=== PATIENT | male | born 1980 | race Hispanic/Latino ===

== ENCOUNTER 2020-05-24 02:42 | Emergency (ER) | payer BC ==
[2020-05-24] MEDS ORDERED: KETOROLAC 30 MG/ML INJ ONE (03:31)
[2020-05-24] MEDS ORDERED: MAGNESIUM SULFATE 1 gm IVPB 1 GM/100 ML BAG IV ONE (03:31)
[2020-05-24] MEDS ORDERED: TAMSULOSIN 0.4 MG SR CAP ONE (03:31)
[2020-05-24 03:42] LABS: Absolute Lymphocytes (CBC) 2.3 K/uL (0.7-4.9); Basophils % 0.9 % (0-1.3); Hematocrit 39.8 % (39.6-49.0); Lymphocytes % 39.8 % (15.3-44.8); MPV 7.8 fL (7.6-11.3); RBC Red Blood Cell Count 4.52 M/uL (4.33-5.43)
[2020-05-24 03:48] LABS: Potassium 3.6 mmol/L (3.5-5.1)
[2020-05-24 04:02] LABS: Urine Blood 3+ (NEG); Urine Glucose NEGATIVE (NEG); Urine Protein TRACE (NEG); Urine Specific Gravity >1.030 (1.005-1.030)
[2020-05-24] MEDS ORDERED: CIPROFLOXACIN HCL 500 MG TAB ONE (04:15)
--- NOTE | 2020-05-24 04:41 | ER ---
Nurse's Notes [facility] Name: Vinny Washburn Age: 39 yrs Sex: Male : 1980 Arrival Date: 05/24/2020 Time: 02:46 Bed 17 Private MD: Dax Arauz Diagnosis: Ureterolithiasis without obstruction Presentation: 05/24 02:55 Chief complaint: Patient states: he was woken up approx an hour ago with sharp left bb flank pain which was so bad it made his knees buckle the pain has improved now. Coronavirus screen: At this time, the client does not indicate any symptoms associated with coronavirus-19. Ebola Screen: No symptoms or risks identified at this time. Initial Sepsis Screen: Does the patient meet any 2 criteria? No. Patient's initial sepsis screen is negative. Does the patient have a suspected source of infection? No. Patient's initial sepsis screen is negative. Risk Assessment: Do you want to hurt yourself or someone else? Patient reports no desire to harm self or others. Onset of symptoms was May 24, 2020. 02:55 Method Of Arrival: Ambulatory bb 02:55 Acuity: DONYA 3 bb Triage Assessment: 02:58 General: Appears. mt2 02:58 General: Appears uncomfortable, Behavior is calm, cooperative. Pain: Complains of pain bb in left flank. 03:03 EENT: No deficits noted. Neuro: No deficits noted. Cardiovascular: No deficits noted. mt2 Respiratory: No deficits noted. GI: Reports. GI: Reports nausea. : Reports pain flank(s). Derm: No deficits noted. Musculoskeletal: No deficits noted. Historical: - Allergies: 02:58 No Known Allergies; bb - Home Meds: 02:58 Unable to obtain [Active]; bb - PMHx: 02:58 Hypertension; High Cholesterol; Allergies; bb - PSHx: 02:58 Vasectomy; bb - Immunization history:: Adult Immunizations up to date. - Social history:: Smoking status: Patient denies any tobacco usage or history of. Patient uses alcohol, occasionally. Patient/guardian denies using street drugs. - Family history:: not pertinent. - Hospitalizations: : No recent hospitalization is reported. Screenin:56 Abuse screen: Denies threats or abuse. Denies injuries from another. Nutritional rr5 screening: No deficits noted. Tuberculosis screening: No symptoms or risk factors identified. Fall Risk IV access (20 points). Total Poon Fall Scale indicates No Risk (0-24 pts). Assessment: 04:09 Reassessment: Patient and/or family updated on plan of care and expected duration. Pain mt2 level reassessed. Patient is alert, oriented x 3, equal unlabored respirations, skin warm/dry/pink. Patient denies pain at this time. GI: Abdomen is flat. 05:01 Reassessment: Patient and/or family updated on plan of care and expected duration. Pain mt2 level reassessed. Patient is alert, oriented x 3, equal unlabored respirations, skin warm/dry/pink. Patient denies pain at this time. Patient states symptoms have improved. General: Appears comfortable, Behavior is cooperative. Vital Signs: 02:55 BP 126 / 83; Pulse 79; Resp 16 S; Temp 98(O); Pulse Ox 96% on R/A; Weight 111.58 kg bb (R); Height 6 ft. 1 in. (185.42 cm) (R); Pain 3/10; 04:10 BP 120 / 68; Pulse 71; Resp 16; Pulse Ox 99% on R/A; Pain 0/10; mt2 05:01 BP 121 / 86; Pulse 79; Resp 16; Pulse Ox 99% on R/A; Pain 0/10; mt2 02:55 Body Mass Index 32.46 (111.58 kg, 185.42 cm) ED Course: 02:46 Patient arrived in ED. es 02:46 Dax Arauz DO is Private Physician. es 02:48 Kenyon Barron MD is Attending Physician. rn 02:48 Teresa Jennings, SOHAN is Primary Nurse. mt2 02:56 Inserted saline lock: 18 gauge in right antecubital area, using aseptic technique. rr5 ,using aseptic technique. inserted by teresa PARRY Blood collected. 02:57 Triage completed. bb 02:57 Patient has correct armband on for positive identification. Bed in low position. Call rr5 light in reach. Pulse ox on. NIBP on. 02:58 Arm band placed on Patient placed in an exam room, on a stretcher, on pulse oximetry. bb 03:20 CT Stone Protocol In Process Unspecified. EDMS 04:40 Philipp Russo MD is Referral Physician. rn 05:01 No provider procedures requiring assistance completed. IV discontinued, intact, mt2 bleeding controlled, No redness/swelling at site. Pressure dressing applied. Administered Medications: 03:31 Drug: Flomax 0.4 mg Route: PO; mt2 04:10 Follow up: Response: No adverse reaction; Pain is decreased mt2 03:31 Drug: Magnesium Sulfate 1 grams Route: IVPB; Infused Over: 1 hrs; Site: right mt2 antecubital; 05:00 Follow up: Response: No adverse reaction; IV Status: Completed infusion mt2 03:32 Drug: TORadol 30 mg Route: IVP; Site: right antecubital; mt2 04:10 Follow up: Response: No adverse reaction; Pain is decreased mt2 04:05 Drug: Cipro 500 mg Route: PO; mt2 04:43 Follow up: Response: No adverse reaction mt2 Outcome: 04:40 Discharge ordered by MD. rn 05:01 Discharged to home ambulatory. mt2 05:01 Condition: good 05:01 Discharge instructions given to patient, Instructed on discharge instructions, follow up and referral plans. medication usage, Demonstrated understanding of instructions, follow-up care, medications, Prescriptions given X 4. 05:02 Patient left the ED. mt2 Signatures: Dispatcher [employer] Carolyn Art Brenda RN RN Kenyon Murray MD MD rn Roque, Raymond, RN RN rr5 Teresa Jennings RN RN mt2
--- NOTE | 2020-05-24 04:41 | EDPHYS ---
Physician Documentation [facility] Name: Vinny Washburn Age: 39 yrs Sex: Male : 1980 Arrival Date: 05/24/2020 Time: 02:46 Bed 17 Private MD: Asia Arauzh ED Physician Kenyon Barron HPI: 05/24 03:19 This 39 yrs old Male presents to ER via Ambulatory with complaints of Flank rn Pain, Nausea. 03:19 The patient complains of pain in the left mid back. Onset: The symptoms/episode rn began/occurred just prior to arrival. Modifying factors: The symptoms are alleviated by nothing. the symptoms are aggravated by nothing. Severity of pain: At its worst the pain was moderate in the emergency department the pain has improved. The patient has not experienced similar symptoms in the past. Reports sudden onset of left flank pain, woke him up, no radiation of pain, did notice difficulty urinating and slightly darker urine. Brother with hx of kidney stones. . Historical: - Allergies: 02:58 No Known Allergies; bb - Home Meds: 02:58 Unable to obtain [Active]; bb - PMHx: 02:58 Hypertension; High Cholesterol; Allergies; bb - PSHx: 02:58 Vasectomy; bb - Immunization history:: Adult Immunizations up to date. - Social history:: Smoking status: Patient denies any tobacco usage or history of. Patient uses alcohol, occasionally. Patient/guardian denies using street drugs. - Family history:: not pertinent. - Hospitalizations: : No recent hospitalization is reported. ROS: 03:19 Constitutional: Negative for fever, chills, and weight loss, Eyes: Negative for injury, rn pain, redness, and discharge, Cardiovascular: Negative for chest pain, palpitations, and edema, Respiratory: Negative for shortness of breath, cough, wheezing, and pleuritic chest pain, Abdomen/GI: + left flank pain Back: Negative for injury and pain, : Negative for injury, bleeding, discharge, and swelling, MS/Extremity: Negative for injury and deformity, Skin: Negative for injury, rash, and discoloration, Neuro: Negative for headache, weakness, numbness, tingling, and seizure. Exam: 03:19 Constitutional: This is a well developed, well nourished patient who is awake, alert, rn and in no acute distress. Head/Face: Normocephalic, atraumatic. Cardiovascular: Regular rate and rhythm. No pulse deficits. Respiratory: No increased work of breathing, no retractions or nasal flaring. Abdomen/GI: soft, non-tender, no masses Back: No spinal tenderness. No costovertebral tenderness. Full range of motion. Skin: Warm, dry MS/ Extremity: Pulses equal, no cyanosis. Neurovascular intact. Full, normal range of motion. Equal circumference. Neuro: Awake and alert, GCS 15 Vital Signs: 02:55 BP 126 / 83; Pulse 79; Resp 16 S; Temp 98(O); Pulse Ox 96% on R/A; Weight 111.58 kg bb (R); Height 6 ft. 1 in. (185.42 cm) (R); Pain 3/10; 04:10 BP 120 / 68; Pulse 71; Resp 16; Pulse Ox 99% on R/A; Pain 0/10; mt2 05:01 BP 121 / 86; Pulse 79; Resp 16; Pulse Ox 99% on R/A; Pain 0/10; mt2 02:55 Body Mass Index 32.46 (111.58 kg, 185.42 cm) bb MDM: 02:48 Patient medically screened. rn 04:09 Differential diagnosis: nephrolithiasis. Data reviewed: vital signs, nurses notes, label sewer test result(s), radiologic studies, CT scan. Counseling: I had a detailed discussion with the patient and/or guardian regarding: the historical points, exam findings, and any diagnostic results supporting the discharge/admit diagnosis, lab results, radiology results, the need for outpatient follow up, to return to the emergency department if symptoms worsen or persist or if there are any questions or concerns that arise at home. Response to treatment: the patient's symptoms have markedly improved after treatment, and as a result, I will discharge patient. Special discussion: I discussed with the patient/guardian in detail that at this point there is no indication for admission to the hospital. It is understood, however, that if the symptoms persist or worsen the patient needs to return immediately for re-evaluation. ED course: Pt states pain markedly improved, pain even decreased from original 2/10 when presented here. Likely passed into bladder. Will observe here a while longer given pharmacies are closed and will be unable to obtain pain/nausea medication when discharged. . 05/24 02:58 Order name: CBC with Diff; Complete Time: 04:04 co2 05/24 02:58 Order name: BMP; Complete Time: 04:04 co2 05/24 03:00 Order name: CT Stone Protocol rn 05/24 03:05 Order name: Urine Dipstick--Ancillary (enter results); Complete Time: 04:04 [facility] 05/24 02:58 Order name: Urine Dipstick-Ancillary (obtain specimen); Complete Time: 03:09 [facility] 05/24 03:00 Order name: IV Start; Complete Time: 03:10 rn Administered Medications: 03:31 Drug: Flomax 0.4 mg Route: PO; mt2 04:10 Follow up: Response: No adverse reaction; Pain is decreased mt2 03:31 Drug: Magnesium Sulfate 1 grams Route: IVPB; Infused Over: 1 hrs; Site: right mt2 antecubital; 05:00 Follow up: Response: No adverse reaction; IV Status: Completed infusion mt2 03:32 Drug: TORadol 30 mg Route: IVP; Site: right antecubital; mt2 04:10 Follow up: Response: No adverse reaction; Pain is decreased mt2 04:05 Drug: Cipro 500 mg Route: PO; mt2 04:43 Follow up: Response: No adverse reaction mt2 Disposition: 05/24/20 04:40 Discharged to Home. Impression: Ureterolithiasis without obstruction. - Condition is Stable. - Discharge Instructions: Kidney Stones, Dietary Guidelines to Help Prevent Kidney Stones. - Prescriptions for Zofran ODT 4 mg Oral tablet,disintegrating - place 1 tablet by TRANSLINGUAL route every 8 hours As needed; 20 tablet. Ibuprofen 800 mg Oral Tablet - take 1 tablet by ORAL route every 12 hours As needed take with food; 20 tablet. Tylenol- Codeine #3 300-30 mg Oral Tablet - take 1 tablet by ORAL route every 6 hours As needed; 20 tablet. Flomax 0.4 mg Oral Capsule, Sust. Release 24 hr - take 1 capsule by ORAL route once daily Stop taking once you feel like you have passed the kidney stone. Can cause lightheadedness and low blood pressure.; 15 capsule. Cipro 500 mg Oral Tablet - take 1 tablet by ORAL route every 12 hours for 10 days; 20 tablet. - Medication Reconciliation Form, Thank You Letter, Antibiotic Education, Prescription Opioid Use form. - Follow up: Philipp Russo; When: As needed; Reason: Recheck today's complaints, Re-evaluation by your physician. - Problem is new. - Symptoms have improved. Signatures: Dispatcher [employer] EDAmerica Lees RN RN bb Kenyon Barron MD MD rn Toscano, Marlene, RN RN mt2 Corrections: (The following items were deleted from the chart) 05:02 04:40 05/24/2020 04:40 Discharged to Home. Impression: Ureterolithiasis without mt2 obstruction. Condition is Stable. Discharge Instructions: Kidney Stones, Dietary Guidelines to Help Prevent Kidney Stones. Prescriptions for Zofran ODT 4 mg Oral tablet,disintegrating - place 1 tablet by TRANSLINGUAL route every 8 hours As needed; 20 tablet, Ibuprofen 800 mg Oral Tablet - take 1 tablet by ORAL route every 12 hours As needed take with food; 20 tablet, Tylenol-Codeine #3 300-30 mg Oral Tablet - take 1 tablet by ORAL route every 6 hours As needed; 20 tablet, Flomax 0.4 mg Oral Capsule, Sust. Release 24 hr - take 1 capsule by ORAL route once daily Stop taking once you feel like you have passed the kidney stone. Can cause lightheadedness and low blood pressure.; 15 capsule, Cipro 500 mg Oral Tablet - take 1 tablet by ORAL route every 12 hours for 10 days; 20 tablet. and Forms are Medication Reconciliation Form, Thank You Letter, Antibiotic Education, Prescription Opioid Use. Follow up: Philipp Russo; When: As needed; Reason: Recheck today's complaints, Re-evaluation by your physician. Problem is new. Symptoms have improved. rn
--- NOTE | 2020-05-24 10:41 | RAD REPORT ---
EXAM DESCRIPTION: Chest Single View CLINICAL HISTORY: DYSPNEA COMPARISON: None. TECHNIQUE: XR CHEST 1 VIEW 05/23/2020 11:43 PM CDT FINDINGS: The heart is enlarged. There is mild bibasilar airspace disease. There may be small pleura l effusions. There is no pneumothorax. There are no acute osseous findings. IMPRESSION: Suspect right basilar pneumonia. Electronically signed by: Jimmie Witt MD 05/24/2020 1:21 AM CDT Due to temporary technical issues with the PACS/Fluency reporting system, reports are being signed by the in house radiologist without review as a courtesy to ensure prompt reporting. The interpreting r adiologist is fully responsible for the content of the report.
== END 2020-05-24 05:02 | disposition home or self-care (01) ==
LOC: ER 02:42
DX: N20.1 Calculus of ureter (principal); I10 Essential (primary) hypertension
CPT/HCPCS: 85025; 80048; 36415; 81003; 76377; 74176; J3475; 96365; 96375; 99284

== ENCOUNTER 2020-11-10 23:36 | Emergency (ER) | payer BC ==
--- NOTE | 2020-11-11 01:56 | EDPHYS ---
Physician Documentation [facility] Name: Vinny Washburn Age: 40 yrs Sex: Male : 1980 Arrival Date: 11/11/2020 Time: 00:48 Bed 4 Private MD: ED Physician Chasity Jackson HPI: 11/11 01:53 This 40 yrs old Male presents to ER via Ambulatory with complaints of Cough. ma2 01:53 The patient or guardian reports cough. Onset: The symptoms/episode began/occurred ma2 gradually, 2 month(s) ago. Severity of symptoms: At their worst the symptoms were very mild, in the emergency department the symptoms are unchanged. Associated signs and symptoms: Pertinent negatives: ear ache, nausea, sore throat. The patient has not experienced similar symptoms in the past. has covid for 4 weeks. Historical: - Allergies: 01:09 No Known Allergies; jb4 - Home Meds: 01:09 Tessalon Perles Oral [Active]; Albuterol Inhl [Active]; steroids [Active]; HTN, jb4 Cholesterol meds [Active]; - PMHx: 01:09 allergies; High Cholesterol; Hypertension; jb4 - PSHx: 01:09 Vasectomy; jb4 - Immunization history:: Adult Immunizations up to date. - Social history:: Smoking status: Patient denies any tobacco usage or history of. Patient uses alcohol, occasionally. Patient/guardian denies using street drugs, Patient/guardian denies using alcohol, The patient lives with family. - Family history:: not pertinent. ROS: 01:53 Constitutional: Negative for fever, chills, and weight loss. ma2 01:53 All other systems are negative. Exam: 01:53 Constitutional: This is a well developed, well nourished patient who is awake, alert, ma2 and in no acute distress. Head/Face: Normocephalic, atraumatic. Eyes: Pupils equal round and reactive to light, extra-ocular motions intact. Lids and lashes normal. Conjunctiva and sclera are non-icteric and not injected. Cornea within normal limits. Periorbital areas with no swelling, redness, or edema. ENT: Nares patent. No nasal discharge, no septal abnormalities noted. Tympanic membranes are normal and external auditory canals are clear. Oropharynx with no redness, swelling, or masses, exudates, or evidence of obstruction, uvula midline. Mucous membranes moist. Neck: Trachea midline, no thyromegaly or masses palpated, and no cervical lymphadenopathy. Supple, full range of motion without nuchal rigidity, or vertebral point tenderness. No Meningismus. Chest/axilla: Normal chest wall appearance and motion. Nontender with no deformity. No lesions are appreciated. Cardiovascular: Regular rate and rhythm with a normal S1 and S2. No gallops, murmurs, or rubs. Normal PMI, no JVD. No pulse deficits. Respiratory: Lungs have equal breath sounds bilaterally, clear to auscultation and percussion. No rales, rhonchi or wheezes noted. No increased work of breathing, no retractions or nasal flaring. Abdomen/GI: Soft, non-tender, with normal bowel sounds. No distension or tympany. No guarding or rebound. No evidence of tenderness throughout. Back: No spinal tenderness. No costovertebral tenderness. Full range of motion. Skin: Warm, dry with normal turgor. Normal color with no rashes, no lesions, and no evidence of cellulitis. MS/ Extremity: Pulses equal, no cyanosis. Neurovascular intact. Full, normal range of motion. Neuro: Awake and alert, GCS 15, oriented to person, place, time, and situation. Cranial nerves II-XII grossly intact. Motor strength 5/5 in all extremities. Sensory grossly intact. Cerebellar exam normal. Normal gait. Vital Signs: 01:05 BP 138 / 88; Pulse 99; Resp 16; Temp 98.9(O); Pulse Ox 99% on R/A; Weight 115.67 kg jb4 (R); Height 6 ft. 1 in. (185.42 cm) (R); Pain 6/10; 01:17 BP 129 / 78; Pulse 79; Resp 18; Temp 97.8(O); Pulse Ox 98% on R/A; ea 01:05 Body Mass Index 33.64 (115.67 kg, 185.42 cm) jb4 MDM: 01:18 Patient medically screened. ma2 01:53 Differential Diagnosis: Bronchitis Upper Respiratory Infection Pharyngitis Viral ma2 Syndrome. Data reviewed: vital signs, nurses notes. Counseling: I had a detailed discussion with the patient and/or guardian regarding: the historical points, exam findings, and any diagnostic results supporting the discharge/admit diagnosis, the presence of at least one elevated blood pressure reading (>120/80) during this emergency department visit, the need for outpatient follow up. Response to treatment: the patient's symptoms have markedly improved after treatment. Administered Medications: 02:10 Drug: AZITHromycin 500 mg Route: PO; ea 02:11 Drug: Albuterol HFA Inhaler 2 puffs Route: Inhalation; ea 02:11 Drug: SOLU-Medrol 125 mg Route: IM; Site: right deltoid; ea Disposition: 11/11/20 01:55 Discharged to Home. Impression: Coronavirus infection, unspecified. - Condition is Stable. - Discharge Instructions: COVID-19. - Prescriptions for Zithromax Z- Maurilio 250 mg Oral Tablet - take 1 tablet by ORAL route as directed for 5 days Day 1 - take two (2) tablets one time. Day 2, 3, 4 , 5 take one (1) tablet once daily.; 6 tablet. Medrol (Maurilio) 4 mg Oral Tablets, Dose Pack - take 1 tablet by ORAL route as directed - follow package instructions; 1 packet. Albuterol Sulfate 90 mcg/actuation - inhale 1-2 puff by INHALATION route every 4-6 hours; 1 Inhaler. - Work release form, Medication Reconciliation Form, Thank You Letter, Antibiotic Education, Prescription Opioid Use form. - Follow up: Private Physician; When: Tomorrow; Reason: If symptoms return, Continuance of care. Signatures: Martinez Mcbride RN RN sg Bryson, James, RN RN jb4 Amanda James RN RN ea Alzahri, Mohammad, MD MD ma2 Corrections: (The following items were deleted from the chart) 02:22 01:55 11/11/2020 01:55 Discharged to Home. Impression: Coronavirus infection, sg unspecified. Condition is Stable. Prescriptions for Zithromax Z-Maurilio 250 mg Oral Tablet - take 1 tablet by ORAL route as directed for 5 days Day 1 - take two (2) tablets one time. Day 2, 3, 4 , 5 take one (1) tablet once daily.; 6 tablet, Medrol (Maurilio) 4 mg Oral Tablets, Dose Pack - take 1 tablet by ORAL route as directed - follow package instructions; 1 packet, Albuterol Sulfate 90 mcg/actuation - inhale 1-2 puff by INHALATION route every 4-6 hours; 1 Inhaler. and Forms are Medication Reconciliation Form, Thank You Letter, Antibiotic Education, Prescription Opioid Use. Follow up: Private Physician; When: Tomorrow; Reason: If symptoms return, Continuance of care. ma2
--- NOTE | 2020-11-11 01:56 | ER ---
Nurse's Notes [facility] Name: Vinny Washburn Age: 40 yrs Sex: Male : 1980 Arrival Date: 11/11/2020 Time: 00:48 Bed 4 Private MD: Diagnosis: Coronavirus infection, unspecified Presentation: 11/11 01:05 Chief complaint: Patient states: I tested positive on Oct.03 for Covid. I still have jb4 a lingering cough that will not go away. My pulse ox at home read 88-94. I just wanted to get checked out. Coronavirus screen: Client denies travel out of the [place] in the last 14 days. cough unrelated to allergies, Client presents with at least one sign or symptom that may indicate coronavirus-19. Standard/surgical mask placed on the client. Ebola Screen: Patient negative for fever greater than or equal to 101.5 degrees Fahrenheit, and additional compatible Ebola Virus Disease symptoms. Initial Sepsis Screen: Does the patient meet any 2 criteria? No. Patient's initial sepsis screen is negative. Does the patient have a suspected source of infection? No. Patient's initial sepsis screen is negative. Risk Assessment: Do you want to hurt yourself or someone else? Patient reports no desire to harm self or others. Onset of symptoms was November 11, 2020. Transition of care: patient was not received from another setting of care. 01:05 Method Of Arrival: Ambulatory jb4 01:05 Acuity: DONYA 4 jb4 Historical: - Allergies: 01:09 No Known Allergies; jb4 - Home Meds: 01:09 Tessalon Perles Oral [Active]; Albuterol Inhl [Active]; steroids [Active]; HTN, jb4 Cholesterol meds [Active]; - PMHx: 01:09 allergies; High Cholesterol; Hypertension; jb4 - PSHx: 01:09 Vasectomy; jb4 - Immunization history:: Adult Immunizations up to date. - Social history:: Smoking status: Patient denies any tobacco usage or history of. Patient uses alcohol, occasionally. Patient/guardian denies using street drugs, Patient/guardian denies using alcohol, The patient lives with family. - Family history:: not pertinent. Screenin:17 Abuse screen: Denies threats or abuse. Nutritional screening: No deficits noted. ea Tuberculosis screening: No symptoms or risk factors identified. Fall Risk None identified. Assessment: 01:17 General: Appears in no apparent distress. comfortable, Behavior is calm, cooperative. ea Pain: Denies pain. Neuro: No deficits noted. Cardiovascular: No deficits noted. Respiratory: Reports cough that is persistent. GI: No signs and/or symptoms were reported involving the gastrointestinal system. : No signs and/or symptoms were reported regarding the genitourinary system. EENT: No signs and/or symptoms were reported regarding the EENT system. Derm: No signs and/or symptoms reported regarding the dermatologic system. Musculoskeletal: No signs and/or symptoms reported regarding the musculoskeletal system. Vital Signs: 01:05 BP 138 / 88; Pulse 99; Resp 16; Temp 98.9(O); Pulse Ox 99% on R/A; Weight 115.67 kg jb4 (R); Height 6 ft. 1 in. (185.42 cm) (R); Pain 6/10; 01:17 BP 129 / 78; Pulse 79; Resp 18; Temp 97.8(O); Pulse Ox 98% on R/A; ea 01:05 Body Mass Index 33.64 (115.67 kg, 185.42 cm) jb4 ED Course: 00:48 Patient arrived in ED. am4 01:08 Triage completed. jb4 01:09 Arm band placed on right wrist. jb4 01:17 Patient has correct armband on for positive identification. Bed in low position. Call ea light in reach. 01:18 Chasity Jackson MD is Attending Physician. ma2 01:28 Amanda James RN is Primary Nurse. ea Administered Medications: 02:10 Drug: AZITHromycin 500 mg Route: PO; ea 02:11 Drug: Albuterol HFA Inhaler 2 puffs Route: Inhalation; ea 02:11 Drug: SOLU-Medrol 125 mg Route: IM; Site: right deltoid; ea Outcome: 01:55 Discharge ordered by . ma2 02:22 Patient left the ED. sg Signatures: Martinez Mcbride RN RN sg Bryson, James, RN RN jb4 Antunez, Elena, RN RN ea Alzahri, Mohammad, MD MD ma2 Martinez, [facility]
[2020-11-11] MEDS ORDERED: ALBUTEROL INHALER 60 PUFF/8 GM IH ONE (02:13)
[2020-11-11] MEDS ORDERED: AZITHROMYCIN 250 MG TAB ONE (02:13)
[2020-11-11] MEDS ORDERED: METHYLPREDNISOLONE 125 MG INJ ONE (02:13)
[2020-11-11 02:28] VITALS: BP 129/78; TEMP 97.8; O2SAT 98
== END 2020-11-11 02:22 | disposition home or self-care (01) ==
LOC: ER 23:36
DX: U07.1 COVID-19 (principal); R05 Cough; I10 Essential (primary) hypertension; E78.00 Pure hypercholesterolemia, unspecified
CPT/HCPCS: 96372; 99284; J2930